=== PATIENT | male | born 1975 | race African-American/Black ===

== ENCOUNTER 2019-09-08 18:31 | Inpatient (IN) | payer OTHER ==
[~2019-09-08] VITALS: Ht 189.2 cm; Wt 101.8 kg
--- NOTE | 2019-09-08 18:45 | NUR ---
PATIENT BIB EMS TRANSPORT FROM [facility]. TODAY PATIENT LAID DOWN TO TAKE A NAP TODAY AROUND 1545. AT 1600 PATIENT WOKE UP WITH A ELLISON AND LEFT-SIDED WEAKNESS/NUMBNESS/TINGLING. PATIENT ALSO REPORTS HE PASSED OUT AND WOKE UP WITH A ELLISON. PATIENT DOES NOT SHOW ANY DEFECITS ON NEURO EXAM. PATIENT DENIES NUMBNESS OR TINGLING AT THIS TIME. PATIENT IS A&OX4, DENIES NUMBNESS AND TINGLING AT THIS TIME. 2 HALFWAY GUARDS AT BEDSIDE
[2019-09-08 19:16] LABS: ALBUMIN 3.6 g/dL (3.4-5.0); ANION GAP 6 mmol/L (5-15); CALCIUM 8.6 mg/dL (8.5-10.1); CHLORIDE 105 mmol/L (98-107); CREATININE 1.37 mg/dL (0.7-1.3)
[2019-09-08 19:24] LABS: ALANINE AMINOTRANSFERASE 30 U/L (12-78); ALKALINE PHOSPHATASE 76 U/L (45-117); BILIRUBIN,TOTAL 0.6 mg/dL (0.2-1.0); TOTAL PROTEIN 7.8 g/dL (6.4-8.2)
[2019-09-08 19:28] LABS: BASOPHILS # (AUTO) 0.01 x10^3/uL (0-0.1); BASOPHILS % (AUTO) 0 % (0-1); EOSINOPHILS # (AUTO) 0.05 x10^3/uL (0-0.4); EOSINOPHILS % (AUTO) 1 % (1-7); LYMPHOCYTES # (AUTO) 1.37 x10^3/uL (1-3.4); LYMPHOCYTES % (AUTO) 28 % (22-44); MD NO; MEAN CORPUSCULAR HGB CONC 32.8 g/dL (33.2-36.2); MEAN PLATELET VOLUME 10.6 fL (7.4-10.4); MONOCYTES # (AUTO) 0.37 x10^3/uL (0.2-0.8); MONOCYTES % (AUTO) 8 % (2-9); NEUTROPHILS # (AUTO) 3.09 x10^3/uL (1.8-6.8); NEUTROPHILS % (AUTO) 63 % (42-75); PLATELET COUNT 146 x10^3/uL (130-400); RED BLOOD COUNT 5.52 x10^6/uL (4.38-5.82); RED CELL DISTRIBUTION WIDTH 13.6 % (9.4-14.8)
--- NOTE | 2019-09-08 19:30 | NUR ---
mri form faxed
[2019-09-08] MEDS: PLEASE ENTER ALLERGIES MC SCH ×2 (21:00→23:44)
[2019-09-08] MEDS ORDERED: ASPIRIN 325 MG TABLET PO ONE (21:00)
[2019-09-08] MEDS ORDERED: ASPIRIN 325 MG TABLET ONE (22:22)
--- NOTE | 2019-09-08 23:16 | NUR ---
report given to Evelina PRICE to assume care upon transfer to [facility]
[2019-09-08 23:48] VITALS: BP 140/80
[2019-09-09 02:33] VITALS: BP 138/76
[2019-09-09] MEDS ORDERED: LABETALOL 5MG/ML, 20ML IV PRN (04:00)
[2019-09-09] MEDS ORDERED: ONDANSETRON 2MG/ML, 2ML IVPush PRN (04:00)
[2019-09-09 06:43] LABS: ANION GAP 4 mmol/L (5-15); CALCIUM 8.6 mg/dL (8.5-10.1); CHLORIDE 105 mmol/L (98-107)
[2019-09-09 06:47] LABS: CHOLESTEROL, TOTAL 215 mg/dL (140-239); CREATININE 1.25 mg/dL (0.7-1.3); HDL CHOL % 25 % (26-37); HDL CHOLESTEROL (DIRECT) 54 mg/dL (40-60); LDL CHOLESTEROL,CALCULATED 150 mg/dL (54-169); LDL/HDL RATIO 2.8 (0.5-3.0); TRIGLYCERIDES 53 mg/dL (50-200); VLDL CHOLESTEROL 11 mg/dL (0-25)
[2019-09-09 07:39] VITALS: BP 121/78
[2019-09-09] MEDS ORDERED: ASPIRIN 81 MG TABLET CHEW PO/NG SCH (09:00)
[2019-09-09] MEDS ORDERED: AMLO-150 PO (10:48)
[2019-09-09] MEDS ORDERED: ATOR-2 PO (10:48)
[2019-09-09] MEDS ORDERED: CLOP75TA PO (10:48)
[2019-09-09] MEDS ORDERED: ASPI-515 PO/NG (10:48)
[2019-09-09] MEDS ORDERED: ATORVASTATIN 40 MG TABLET PO SCH (21:00)
[2019-09-09] MEDS ORDERED: ATORVASTATIN 80 MG TABLET PO SCH (21:00)
[2019-09-10] MEDS ORDERED: CLOPIDOGREL 75 MG TABLET PO SCH (09:00)
[2019-09-10] MEDS ORDERED: AMLODIPINE 5 MG TABLET PO SCH (09:00)
== END 2019-09-09 15:14 | disposition home or self-care (01) | DRG 69 ==
LOC: ED 20:38 → EDIP 21:45 → 5SO 23:29
PROVIDERS: ADMIT Family Medicine; ATTEND Internal Medicine
DX: G45.9 Transient cerebral ischemic attack, unspecified (principal); I12.9 Hypertensive chronic kidney disease with stage 1 through stage 4 chronic kidney disease, or unspecified chronic kidney disease; N18.2 Chronic kidney disease, stage 2 (mild); Z82.49 Family history of ischemic heart disease and other diseases of the circulatory system; Z83.3 Family history of diabetes mellitus; Z87.891 Personal history of nicotine dependence; Z79.84 Long term (current) use of oral hypoglycemic drugs; Z80.8 Family history of malignant neoplasm of other organs or systems; Z82.3 Family history of stroke
CPT/HCPCS: 36415; 70450; 70551; 80048; 80053; 80061; 85025; 93005; 99285; G0378

== ENCOUNTER 2019-09-18 14:04 | Emergency (ER) | payer OTHER ==
[~2019-09-18] VITALS: Ht 188 cm; Wt 103.0 kg
[~2019-09-18 14:04] MED LIST: AMLO-150 PO; ASPI-515 PO/NG; ATOR-2 PO; CLOP75TA PO
[2019-09-18 14:50] LABS: MEAN CORPUSCULAR HEMOGLOBIN 27.6 pg (27.5-34.5); MEAN CORPUSCULAR HGB CONC 32.1 g/dL (33.2-36.2); MEAN CORPUSCULAR VOLUME 85.9 fL (81-97); MEAN PLATELET VOLUME 9.4 fL (7.4-10.4); PLATELET COUNT 164 x10^3/uL (130-400); RED BLOOD COUNT 5.73 x10^6/uL (4.38-5.82); RED CELL DISTRIBUTION WIDTH 13.3 % (9.4-14.8)
[2019-09-18 14:58] LABS: ANION GAP 5 mmol/L (5-15); CALCIUM 8.7 mg/dL (8.5-10.1); CHLORIDE 107 mmol/L (98-107); CREATININE 1.27 mg/dL (0.7-1.3)
[2019-09-18 15:02] LABS: TROPONIN I < 0.015 ng/mL (0.000-0.045)
[2019-09-18 15:13] LABS: BASOPHILS # (AUTO) 0.02 x10^3/uL (0-0.1); BASOPHILS % (AUTO) 0 % (0-1); EOSINOPHILS # (AUTO) 0.06 x10^3/uL (0-0.4); EOSINOPHILS % (AUTO) 1 % (1-7); LYMPHOCYTES # (AUTO) 1.39 x10^3/uL (1-3.4); LYMPHOCYTES % (AUTO) 31 % (22-44); MD SCAN; MONOCYTES # (AUTO) 0.46 x10^3/uL (0.2-0.8); MONOCYTES % (AUTO) 10 % (2-9); NEUTROPHILS # (AUTO) 2.64 x10^3/uL (1.8-6.8); NEUTROPHILS % (AUTO) 58 % (42-75)
--- NOTE | 2019-09-18 15:31 | NUR ---
ALL RESULTS ARE BACK AT THIS TIME. CHART UP FOR RECHECK.
--- NOTE | 2019-09-18 15:35 | NUR ---
PT RESTING COMFORTABLY ON GURNEY. NADN. 2 OFFICERS AT BEDSIDE.
[2019-09-18] MEDS ORDERED: METOCLOPRAMIDE 5 MG/ML, 2ML IM ONE (16:00)
[2019-09-18] MEDS ORDERED: DIPHENHYDRAMINE 50 MG/ML, 1ML ONE (16:27)
[2019-09-18] MEDS ORDERED: METOCLOPRAMIDE 5 MG/ML, 2ML ONE (16:27)
--- NOTE | 2019-09-18 16:40 | NUR ---
JEANETTE RN: MEDICATED PER ORDERS
[2019-09-18] MEDS ORDERED: DIPHENHYDRAMINE 50 MG/ML, 1ML IM ONE (17:00)
--- NOTE | 2019-09-18 17:00 | NUR ---
Patient/Caregiver given discharge instructions and they have confirmed that they understand the instructions. Patient ambulatory with steady gait.
[2019-09-18 17:01] VITALS: BP 135/82
== END 2019-09-18 17:02 | disposition home or self-care (01) ==
LOC: MERGE 14:04 → ED 14:16
DX: R07.89 Other chest pain (principal); R51 Headache; R06.02 Shortness of breath; Z86.73 Personal history of transient ischemic attack (TIA), and cerebral infarction without residual deficits
CPT/HCPCS: 36415; 70450; 71045; 80048; 82040; 84484; 85025; 85379; 93005; 96372; 99285; J1200; J2765